=== PATIENT | male | born 1970 | race Caucasian/White ===

== ENCOUNTER → 2021-03-21 17:23 | Outpatient (CLI) | payer OTHER, SELFPAY ==
--- NOTE | 2021-03-21 | DI.MRI.S_ITS ---
PROCEDURE: MR CERVICAL SPINE WO CON INDICATIONS: radiculopathy, cervical region TECHNIQUE: Noncontrast sagittal T1 spin echo and T2 fast spin echo, sagittal STIR, foraminal oblique sagittal T2 fast spin echo, and axial gradient echo or T2 fast spin echo through the cervical spine. COMPARISON: None. FINDINGS: Image quality: Excellent. Alignment and Curvature: There is normal bony alignment. Bone Marrow: Marrow demonstrates normal overall signal. Spinal Cord: Visualized spinal cord has normal size and signal. No cerebellar tonsillar herniation. Paraspinous Soft Tissues: No paravertebral masses. Prevertebral soft tissues are normal in thickness. C2-C3: Short pedicles. AP diameter of the canal is 1.0 cm. No foraminal stenosis. C3-C4: Short pedicles. Mild disc bulge with flattening of the ventral cord. AP diameter of the canal is 9.5 mm. Bilateral uncovertebral joint hypertrophy. Moderate bilateral foraminal narrowing with mild flattening deformity on the exiting bilateral C4 nerve roots. C4-C5: Short pedicles. Minimal right paracentral disc protrusion. AP diameter of the canal is 8.4 mm. Mild bilateral foraminal narrowing. C5-C6: Congenitally short pedicles. Diffuse disc bulge with mild superimposed left paracentral disc protrusion indenting on the cord. AP diameter of the canal is 8.4 mm. The left side of the canal is somewhat more narrowed. Right uncovertebral joint hypertrophy. Moderate right foraminal narrowing with flattening deformity on the exiting right C6 nerve root. C6-C7: Short pedicles. AP diameter of the canal is 1.1 cm. Focal left paracentral disc protrusion indenting on the left ventral cord and narrowing the right lateral recess. This likely impinges on the ventral horn of the exiting left C7 nerve. A left foraminal disc protrusion contributes to severe left foraminal narrowing and left C7 nerve root impingement. C7-T1: No canal stenosis or foraminal stenosis. IMPRESSION: 1. Patient has underlying congenitally short pedicles. 2. Multilevel canal stenosis, mild at C3-C4, moderate at C4-C5 and C5-C6 3. At C6-C7, there is a focal left paracentral disc protrusion. There is also a left foraminal disc protrusion which contributes to severe left foraminal narrowing and left C7 nerve root impingement. 4. Multilevel foraminal narrowing as described above. Dictated by: Erick Arriaga M.D. on 03/21/2021 at 23:39 Approved by: Erick Arriaga M.D. on 03/21/2021 at 23:48
== END ==
PROVIDERS: Referring Provider Family Medicine; Visit Provider Family Medicine
DX: M50.123 Cervical disc disorder at C6-C7 level with radiculopathy (principal); M48.02 Spinal stenosis, cervical region
CPT/HCPCS: 72141

== ENCOUNTER → 2022-06-19 13:48 | Outpatient (CLI) | payer BC, OTHER, SELFPAY ==
[2022-06-19 15:01] LABS: Influenza A - CEPHEID Flu A NEGATIVE (NEGATIVE); Influenza B - CEPHEID Flu B NEGATIVE (NEGATIVE); Respiratory Syncytial Virus Negative (Negative)
[2022-06-19 15:03] LABS: COVID-19 CEPHEID 4-PLEX PCR POSITIVE (Negative)
== END ==
PROVIDERS: Visit Provider Student in an Organized Health Care Education/Training Program
DX: R05.9 Cough, unspecified (principal); R09.81 Nasal congestion
CPT/HCPCS: 0241U

== ENCOUNTER → 2022-10-17 09:22 | Outpatient (CLI) | payer BC, OTHER, SELFPAY ==
[2022-10-17 10:28] LABS: Add Manual Diff / Slide Review NO; Basophils Absolute Auto 100 /uL (0-100); Basophils Percent Auto 0.9 % (0-2); Eosinophils Absolute Auto 200 /uL (0-450); Hematocrit 42.5 % (41-53); Hemoglobin 14.8 g/dL (13.5-17.5); Lymphocytes Absolute Auto 2200 /uL (1100-4500); Lymphocytes Percent Auto 34.7 % (25-40); Mean Corpuscular HGB Conc 34.8 % (30-36); Mean Corpuscular Hemoglobin 29.9 PG (26-34); Mean Corpuscular Volume 86.2 fL (80-100); Monocytes Absolute Auto 500 /uL (0-900); Monocytes Percent Auto 8.4 % (3-14); Neutrophils Absolute Auto 3400 /uL (1500-7000); Platelet Count 258 X10^3/uL (150-400); Red Blood Cell Count 4.93 X10^6/uL (4.5-5.9); Red Cell Distribution Width 13.4 % (11.6-14.8); White Blood Cell Count 6.5 X10^3/uL (4.5-11.0)
[2022-10-17 10:45] LABS: Alanine Aminotransferase 53 IU/L (<50); Albumin 4.5 g/dL (3.5-5.0); Albumin Globulin Ratio 1.4 (1.0-2.8); Alkaline Phosphatase 86 U/L (38-126); Aspartate Aminotransferase 35 IU/L (17-59); BUN Creatinine Ratio 20.4 (6-22); Bilirubin Total 0.6 mg/dL (0.2-1.3); Blood Urea Nitrogen 19 mg/dL (9-20); Calcium 9.5 mg/dL (8.4-10.2); Carbon Dioxide 28 mmol/L (22-32); Chloride 106 mmol/L (98-107); Cholesterol 227 mg/dL (140-199); Estimated Glomerular Filt Rate > 60 mL/min (>60); Globulin 3.2 g/dL (1.7-4.1); Glucose 95 mg/dL (70-100); HDL Cholesterol 40 mg/dL (40-60); HEMOLYSIS < 15 (0-50); LDL Cholesterol Calculated 152 mg/dL (<100); Potassium 4.2 mmol/L (3.4-5.1); Sodium 141 mmol/L (137-145); Total Protein 7.7 g/dL (6.3-8.2); Triglycerides 175 mg/dL (35-150)
[2022-10-17 11:15] LABS: Prostate Specific Antigen 2.49 ng/mL (0.10-4.00)
== END ==
PROVIDERS: PCP Family Medicine; Referring Provider Family Medicine; Visit Provider Family Medicine
DX: Z00.00 Encounter for general adult medical examination without abnormal findings (principal)
CPT/HCPCS: 36415; 80053; 80061; 84153; 85025

== ENCOUNTER 2023-02-25 11:49 | Day surgery (SDC) | payer BC, OTHER, SELFPAY ==
--- NOTE | 2023-02-25 | PATH_ITS ---
[facility] Accession Number: [id number] No. of containers..01 Tissue . 01 Material submitted: . ileum - TERMINAL ILEUM . 01 Diagnosis: A. 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 No granulomas seen. Negative for dysplasia and malignancy. . COMMENT: The histologic features raise a broad differential including inflammation due to medications, particularly to NSAIDs, as well as an infectious process. The possibility of Crohn's disease also enters the differential, although granulomas or other features more specific for Crohn's disease are not seen. Correlation with clinical features is recommended. MNT 03/02/2023 2329 Local . 01 Electronically signed: . Tiarra Brito MD, Pathologist NPI- [id number] . 01 Gross description: . TERMINAL ILEUM: Received in formalin is 1 fragment(s) of sarabia, soft tissue measuring 0.6 x 0.2 x 0.1 cm submitted entirely in 1 cassette(s) /AAY 02/26/2023 0327 Local . 01 Microscopic: . Ileal mucosa with focal erosion, active inflammation with neutrophils in the mucosal epithelium, and architectural distortion with villous blunting. The lamina propria is expanded by a mixed inflammatory infiltrate, including lymphocytes, neutrophils, and eosinophils. Focal pyloric metaplasia is present. No granulomas are identified. No dysplasia is seen. No viral cytopathic effects noted. . 01 Pathologist provided ICD-10: Z12.11 . 01 CPT . 977627 Specimen Comment: A courtesy copy of this report has been sent to [phone] Performed at: [facility] [address] [place] [address] [address], [place], [place] [id number] MD Robert Barry MD Phone: [phone]
[2023-02-25 11:58] VITALS: BP 127/86; PULSE 100; RESP 17; TEMP 35.8; O2SAT 96; BMI 28.4
[2023-02-25] MEDS: LACTATED RINGERS 1,000 ML 42 ML IV (12:16)
--- NOTE | 2023-02-25 13:30 | P.HP_ITS ---
History of Present Illness History of Present Illness Date Patient Seen: 02/25/23 Time Patient Seen: 13:30 Chief complaint: Colonoscopy Narrative: Roni is a 52-year-old man who is here for colonoscopy. He has never had 1 before. No family history of colon cancer. [facility] Medical History Allergies (~1992) Encounter for well adult exam without abnormal findings Fractures Hyperlipidemia Neck pain Sleep apnea Surgical History Anesthesia History of hemorrhoidectomy (~2015) History of vasectomy (~2003) Family History Father History of heart disease Mother Diabetes mellitus Hypertension Hyperlipidemia Grandfather Mental health problem Liver failure Grandmother Mental health problem Dementia Grandfather Mental health problem Dementia Grandmother Mental health problem Social History household members: spouse Smoking Status: Never smoker Meds Home Medications and Allergies Allergies Allergy/AdvReac Type Severity Reaction Status Date / Time No Known Drug Allergies Allergy Verified 02/25/23 11:57 Exam Vital Signs (past 8 hours): - 02/25/23 11:58 Temperature 96.5 F L Pulse Rate 100 H Respiratory Rate 17 Blood Pressure 127/86 Pulse Oximetry 96 Oxygen Delivery Method Room Air Oxygen Delivery Method Room Air Const General: healthy appearing Assessment & Plan Assessment and plan (1) Colon cancer screening: Status: Acute Plan We reviewed the risks and benefits of colonoscopy for colon cancer screening and he would like to proceed.
--- NOTE | 2023-02-25 14:18 | SUR.OPER ---
Colonoscope 383.
--- NOTE | 2023-02-25 14:37 | PM.OP.COLON ---
Operative Date/Time/Diagnoses Date of procedure: 02/25/23 Time of procedure: 14:37 Pre-op diagnosis: Colon cancer screening Post-op diagnosis: same Procedure & Clinicians Study performed: Colonoscopy Same procedure as scheduled: Yes Surgeon: Alejandro Calix Procedure Notes Procedure in detail: Surgeon: Alejandro Calix MD Anesthesia: Aminta Whitley DO Procedure: The patient was brought to the endoscopy suite, placed in left lateral decubitus position. The patient was connected to monitoring devices. A time-out was performed. Sedation was administered. Once the patient was adequately sedated, a digital rectal exam was performed and was normal. The scope was then inserted and advanced to the cecum where the appendiceal orifice was identified and photographed. The terminal ileum was intubated and some inflammation was noted in the distal terminal ileal mucosa. A random biopsy was taken with the cold forceps. The scope was then slowly withdrawn over greater than 6 minutes. The mucosa was thoroughly inspected. No other abnormalities were seen. The scope was retroflexed in the rectum. No additional abnormalities were seen. The scope was straightened and removed. The patient was awakened and brought to recovery. Scope withdrawal time: 8 minutes Sedation time: 11 minutes EBL: 2 mL Findings: Some mild inflammation of the terminal ileal mucosa
[2023-02-25 14:38] VITALS: BP 107/72; PULSE 68; RESP 15; TEMP 36.4; O2SAT 98
[2023-02-25 14:43] VITALS: BP 129/80; PULSE 60; RESP 15; O2SAT 97
[2023-02-25 14:48] VITALS: BP 119/81; PULSE 60; RESP 13; TEMP 36.2; O2SAT 98
== END 2023-02-25 15:00 | disposition home or self-care (01) ==
PROVIDERS: PCP Family Medicine; Referring Provider Surgery; Visit Provider Surgery
PROC: 0DJD8ZZ Inspection of Lower Intestinal Tract, Via Natural or Artificial Opening Endoscopic (ICD-10-PCS; CPT 45378; principal; 2023-02-25 12:45)
DX: Z12.11 Encounter for screening for malignant neoplasm of colon (principal); K52.89 Other specified noninfective gastroenteritis and colitis
CPT/HCPCS: 45380; J2704

== ENCOUNTER → 2023-07-24 12:27 | Outpatient (CLI) | payer BC, OTHER, SELFPAY ==
[2023-07-24 14:10] LABS: C-Reactive Protein Quant 0.8 mg/dL (<1.0)
[2023-07-29 16:36] LABS: Calprotectin, Stool 21 ug/g (0-120)
== END ==
PROVIDERS: PCP Family Medicine; Referring Provider Internal Medicine Gastroenterology; Visit Provider Internal Medicine Gastroenterology
DX: R19.4 Change in bowel habit (principal); K50.00 Crohn's disease of small intestine without complications
CPT/HCPCS: 36415; 83993; 86140; 87177; 87329

== ENCOUNTER → 2023-09-15 07:34 | Outpatient (CLI) | payer BC, OTHER, SELFPAY ==
--- NOTE | 2023-09-15 07:35 | DI.MRI.S_ITS ---
PROCEDURE: MR CERVICAL SPINE WO CON INDICATIONS: symptomatic cervical stenosis TECHNIQUE: Noncontrast sagittal T1 spin echo and T2 fast spin echo, sagittal STIR, foraminal oblique sagittal T2 fast spin echo, and axial gradient echo or T2 fast spin echo through the cervical spine. COMPARISON: [facility], MR, MR CERVICAL SPINE WO CON, 03/21/2021, 17:49. FINDINGS: Image quality: Excellent. Alignment and Curvature: There is mild cervical straightening. Bone Marrow: Marrow demonstrates normal overall signal. Spinal Cord: Visualized spinal cord has normal size and signal. 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 No cerebellar tonsillar herniation. Paraspinous Soft Tissues: No paravertebral masses. Prevertebral soft tissues are normal in thickness. C2-C3: No disc bulge or foraminal narrowing. Minimal canal narrowing. No interval change. C3-C4: Mild disc bulge with mild spinal stenosis. Moderate bilateral foraminal narrowing with slight flattening deformity exiting L4 nerve roots bilaterally. Uncovertebral hypertrophy is present. No interval change. C4-C5: Mild disc bulge with trace right posterior paracentral protrusion, questionably more prominent compared to prior exam. [id number] spinal stenosis. Mild bilateral foraminal narrowing. No interval change of spinal stenosis or foraminal narrowing. C5-C6: Mild disc bulge with much less prominent appearance of previous left posterior paracentral protrusion. Moderate spinal stenosis. Moderate right foraminal narrowing with mild flattening deformity of the exiting right C6 nerve root. Mild left foraminal narrowing. No interval change of spinal stenosis or foraminal narrowing. C6-C7: Mild disc bulge with slightly less prominent appearance of previous posterior protrusion. Moderate spinal stenosis. Severe bilateral foraminal narrowing with left nerve root C7 impingement, unchanged. C7-T1: No disc bulge, spinal stenosis or foraminal narrowing. IMPRESSION: Overall, relatively stable exam without areas of progression. Previous protrusions are slightly less prominent. 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 Multilevel foraminal narrowing appearing most prominent at C5-6 and C6-7. Dictated by: Caity Feliz M.D. on 09/15/2023 at 13:13 Approved by: Caity Feliz M.D. on 09/15/2023 at 13:28
== END ==
LOC: MRI 07:35
PROVIDERS: PCP Family Medicine; Referring Provider Family Medicine; Visit Provider Family Medicine
DX: M48.02 Spinal stenosis, cervical region (principal); M50.221 Other cervical disc displacement at C4-C5 level
CPT/HCPCS: 72141

== ENCOUNTER → 2023-10-22 09:02 | Outpatient (CLI) | payer BC, OTHER, SELFPAY ==
[2023-10-22 09:57] LABS: Add Manual Diff / Slide Review NO; Basophils Absolute Auto 0 /uL (0-100); Basophils Percent Auto 0.6 % (0-2); Eosinophils Absolute Auto 200 /uL (0-450); Eosinophils Percent Auto 2.5 % (2-4); Hematocrit 41.5 % (41-53); Hemoglobin 14.4 g/dL (13.5-17.5); Lymphocytes Absolute Auto 1900 /uL (1100-4500); Lymphocytes Percent Auto 28.6 % (25-40); Mean Corpuscular HGB Conc 34.7 % (30-36); Mean Corpuscular Hemoglobin 30.2 PG (26-34); Mean Corpuscular Volume 87.2 fL (80-100); Monocytes Absolute Auto 600 /uL (0-900); Monocytes Percent Auto 9.9 % (3-14); Neutrophils Absolute Auto 3800 /uL (1500-7000); Neutrophils Percent Auto 58.4 % (50-75); Platelet Count 243 X10^3/uL (150-400); Red Blood Cell Count 4.76 X10^6/uL (4.5-5.9); Red Cell Distribution Width 13.5 % (11.6-14.8); White Blood Cell Count 6.6 X10^3/uL (4.5-11.0)
[2023-10-22 10:03] LABS: Alanine Aminotransferase 56 IU/L (<50); Albumin 4.4 g/dL (3.5-5.0); Albumin Globulin Ratio 1.6 (1.0-2.8); Alkaline Phosphatase 74 U/L (38-126); Aspartate Aminotransferase 39 IU/L (17-59); BUN Creatinine Ratio 14.4 (6-22); Bilirubin Total 0.7 mg/dL (0.2-1.3); Blood Urea Nitrogen 15 mg/dL (9-20); Calcium 9.3 mg/dL (8.4-10.2); Carbon Dioxide 27 mmol/L (22-32); Chloride 107 mmol/L (98-107); Cholesterol 163 mg/dL (140-199); Estimated Glomerular Filt Rate > 60 mL/min (>60); Globulin 2.7 g/dL (1.7-4.1); Glucose 101 mg/dL (70-100); HDL Cholesterol 39 mg/dL (40-60); HEMOLYSIS < 15 (0-50); LDL Cholesterol Calculated 95 mg/dL (<100); Potassium 4.1 mmol/L (3.4-5.1); Sodium 142 mmol/L (137-145); Total Protein 7.1 g/dL (6.3-8.2); Triglycerides 144 mg/dL (35-150)
[2023-10-22 10:31] LABS: Prostate Specific Antigen 3.33 ng/mL (0.10-4.00)
== END ==
LOC: LAB 09:03
PROVIDERS: PCP Family Medicine; Referring Provider Family Medicine; Visit Provider Family Medicine
DX: Z01.812 Encounter for preprocedural laboratory examination (principal); Z83.438 Family history of other disorder of lipoprotein metabolism and other lipidemia; E78.5 Hyperlipidemia, unspecified
CPT/HCPCS: 36415; 80053; 80061; 84153; 85025

== ENCOUNTER → 2024-10-27 09:29 | Outpatient (CLI) | payer BC, OTHER, SELFPAY ==
[2024-10-27 10:36] LABS: Hemoglobin A1C% w Est Avg Glu 5.3 % (4.0-6.0)
[2024-10-27 10:46] LABS: Alanine Aminotransferase 47 IU/L (<50); Albumin 4.7 g/dL (3.5-5.0); Albumin Globulin Ratio 1.6 (1.0-2.8); Alkaline Phosphatase 77 U/L (38-126); Aspartate Aminotransferase 36 IU/L (17-59); BUN Creatinine Ratio 15.8 (6-22); Bilirubin Total 0.6 mg/dL (0.2-1.3); Blood Urea Nitrogen 16 mg/dL (9-20); Calcium 9.6 mg/dL (8.4-10.2); Carbon Dioxide 27 mmol/L (22-32); Chloride 103 mmol/L (98-107); Estimated Glomerular Filt Rate > 60 mL/min (>60); Globulin 2.9 g/dL (1.7-4.1); Glucose 97 mg/dL (70-99); HEMOLYSIS < 15 (0-50); Potassium 4.3 mmol/L (3.4-5.1); Sodium 139 mmol/L (137-145); Total Protein 7.6 g/dL (6.3-8.2)
[2024-10-27 11:16] LABS: Prostate Specific Antigen 2.94 ng/mL (0.10-4.00)
== END ==
PROVIDERS: PCP Family Medicine; Referring Provider Family Medicine; Visit Provider Family Medicine
DX: Z00.00 Encounter for general adult medical examination without abnormal findings (principal); R73.9 Hyperglycemia, unspecified
CPT/HCPCS: 36415; 80053; 83036; 84153